=== PATIENT | male | born 1945 | race Caucasian/White ===

== ENCOUNTER → 2018-03-25 | Outpatient (CLI) | payer MEDICARE ==
[~2018-03-25] MED LIST: DEXL30CA2 PO; OLME40TA12 PO; ROSU40TA PO; SUMA100T4 PO
[2018-03-25 10:31] LABS: BASOPHILS # (AUTO) 0.02 x10^3/uL (0-0.1); BASOPHILS % (AUTO) 0 % (0-1); EOSINOPHILS # (AUTO) 0.18 x10^3/uL (0-0.4); EOSINOPHILS % (AUTO) 3 % (1-7); LYMPHOCYTES # (AUTO) 1.25 x10^3/uL (1-3.4); LYMPHOCYTES % (AUTO) 17 % (22-44); MD NO; MEAN CORPUSCULAR HEMOGLOBIN 31.8 pg (27.5-34.5); MEAN CORPUSCULAR VOLUME 93.6 fL (81-97); MEAN PLATELET VOLUME 7.7 fL (7.4-10.4); MONOCYTES # (AUTO) 0.69 x10^3/uL (0.2-0.8); MONOCYTES % (AUTO) 10 % (2-9); NEUTROPHILS # (AUTO) 5.04 x10^3/uL (1.8-6.8); NEUTROPHILS % (AUTO) 70 % (42-75); PLATELET COUNT 299 x10^3/uL (130-400); RED BLOOD COUNT 4.21 x10^6/uL (4.38-5.82); RED CELL DISTRIBUTION WIDTH 13.8 % (9.4-14.8)
[2018-03-25 10:31] LABS: CULTURE INDICATED? NO; MICROSCOPIC NOT IND
[2018-03-25 10:43] LABS: ALANINE AMINOTRANSFERASE 27 U/L (12-78); ALBUMIN 3.6 g/dL (3.4-5.0); CALCIUM 9.3 mg/dL (8.5-10.1); CREATININE 1.19 mg/dL (0.7-1.3)
[2018-03-25 10:45] LABS: ALKALINE PHOSPHATASE 82 U/L (45-117); BILIRUBIN,TOTAL 0.3 mg/dL (0.2-1.0); TOTAL PROTEIN 7.2 g/dL (6.4-8.2)
[2018-03-25 10:53] LABS: ANION GAP 6 mmol/L (5-15); CHLORIDE 107 mmol/L (98-107)
== END | disposition home or self-care (01) ==
LOC: STAR 09:25
PROVIDERS: ATTEND Orthopaedic Surgery
DX: Z01.818 Encounter for other preprocedural examination (principal); M17.11 Unilateral primary osteoarthritis, right knee
CPT/HCPCS: 36415; 80053; 81003; 85025; 87081; 93005

== ENCOUNTER 2018-04-01 06:01 | Inpatient (IN) | payer MEDICARE ==
[~2018-04-01] VITALS: Ht 175.3 cm; Wt 82.7 kg
[2018-04-01] MEDS ORDERED: LACTATED RINGERS 1,000 ML IV SCH (06:59)
[2018-04-01 07:22] VITALS: BP 145/85
[2018-04-01] MEDS ORDERED: KETOROLAC 60 MG/2 ML ONE (07:26)
[2018-04-01] MEDS ORDERED: TRANEXAMIC ACID 100 MG/ML, 10ML ONE (07:26)
[2018-04-01] MEDS ORDERED: VANCOMYCIN 1,000 MG ONE (07:27)
[2018-04-01] MEDS ORDERED: ROPIvacaine/PF 0.2%, 20 ML ONE (07:27)
[2018-04-01] MEDS ORDERED: EPINEPHRINE 1 MG/ML, 1ML ONE (07:27)
[2018-04-01] MEDS ORDERED: SODIUM CHLORIDE 0.9% 100 ML ONE (07:27)
[2018-04-01] MEDS ORDERED: FENTANYL PF 250 MCG/5ML ONE (08:32)
[2018-04-01] MEDS ORDERED: MIDAZOLAM 1 MG/ML, 2ML ONE (08:32)
[2018-04-01] MEDS ORDERED: GABAPENTIN 300 MG CAPSULE ONE (09:08)
[2018-04-01] MEDS ORDERED: GABAPENTIN 300 MG CAPSULE PO ONE (09:30)
[2018-04-01] MEDS ORDERED: CEFAZOLIN 1,000 MG ONE (09:30)
[2018-04-01] MEDS ORDERED: PROPOFOL 10 MG/ML, 50ML ONE (09:30)
[2018-04-01] MEDS ORDERED: ONDANSETRON 2MG/ML, 2ML ONE (09:30)
[2018-04-01] MEDS ORDERED: hydrALAzine 20 MG/ML, 1ML IV PRN (10:00)
[2018-04-01] MEDS ORDERED: PROMETHAZINE 12.5 MG SUPP PR PRN ×2 (10:00→11:30)
[2018-04-01] MEDS ORDERED: LABETALOL 5MG/ML, 20ML IV PRN (10:00)
[2018-04-01] MEDS ORDERED: ONDANSETRON 2MG/ML, 2ML IV PRN ×2 (10:00→11:30)
[2018-04-01] MEDS ORDERED: ONDANSETRON ODT 8 MG PO PRN (10:00)
[2018-04-01] MEDS ORDERED: HYDROmorphone 1 MG/ML, 1ML IV PRN ×2 (10:00→11:30)
[2018-04-01] MEDS ORDERED: FENTANYL PF 100 MCG/2ML IV PRN (10:00)
[2018-04-01] MEDS ORDERED: OXYcodone 5 MG/5 ML ORAL.SOL UDC PO PRN (10:00)
[2018-04-01] MEDS ORDERED: DIPHENHYDRAMINE 50 MG/ML, 1ML ONE (10:41)
[2018-04-01] MEDS ORDERED: MEPERIDINE/PF 25MG/ML,1ML ONE (11:17)
[2018-04-01] MEDS ORDERED: SUMATRIPTAN 100 MG TABLET PO PRN (11:30)
[2018-04-01] MEDS ORDERED: DIPHENHYDRAMINE 50 MG CAPSULE PO PRN (11:30)
[2018-04-01] MEDS ORDERED: PROMETHAZINE 25 MG/ML, 1ML IM PRN (11:30)
[2018-04-01] MEDS ORDERED: SENNA/DOCUSATE TABLET PO PRN (11:30)
[2018-04-01] MEDS ORDERED: ALUMINUM/MAG/SIMETHICONE 30 ML UDC PO PRN (11:30)
[2018-04-01] MEDS ORDERED: ACETAMINOPHEN 650 MG/20.3 ML UDC PO PRN (11:30)
[2018-04-01] MEDS ORDERED: MEPERIDINE/PF 25MG/0.5ML IVPush PRN (11:30)
[2018-04-01] MEDS ORDERED: DIAZEPAM 5 MG TABLET PO PRN (11:30)
[2018-04-01] MEDS ORDERED: ZOLPIDEM 5MG TABLET PO PRN (11:30)
[2018-04-01] MEDS ORDERED: BISACODYL 10 MG SUPP PR PRN (11:30)
[2018-04-01] MEDS ORDERED: MAGNESIUM HYDROXIDE 8%, 30ML UDC PO PRN (11:30)
[2018-04-01] MEDS ORDERED: ONDANSETRON 4 MG TABLET PO PRN (11:30)
[2018-04-01] MEDS ORDERED: TRANEXAMIC ACID 1,000 MG in SODIUM CHLORIDE 0.9% 100 ML IVPB ONE (11:45)
[2018-04-01] MEDS ORDERED: OXYcodone 5 MG/5 ML ORAL.SOL UDC ONE (11:47)
[2018-04-01 12:30] VITALS: BP 131/77
[2018-04-01 13:25] VITALS: BP 138/79
[2018-04-01] MEDS: D5%-0.45% NACL 1,000 ML IV SCH ×2 (13:40→21:15)
[2018-04-01] MEDS: TAMSULOSIN 0.4 MG CAP.ER.24H PO SCH (13:40)
[2018-04-01 17:09] VITALS: BP 132/87
[2018-04-01] MEDS: CEFAZOLIN PMX 2GM/50ML 50 ML IVPB SCH (18:13)
[2018-04-01 20:50] VITALS: BP 117/70
[2018-04-01] MEDS: DOCUSATE 100 MG CAPSULE PO SCH (21:15)
[2018-04-01] MEDS: HYDROcodone/APAP 10/325 MG TABLET PO PRN (22:09)
[2018-04-02 00:03] VITALS: BP 101/59
[2018-04-02] MEDS: CEFAZOLIN PMX 2GM/50ML 50 ML IVPB SCH (01:41)
[2018-04-02] MEDS: HYDROcodone/APAP 10/325 MG TABLET PO PRN ×2 (03:51→10:00)
[2018-04-02] MEDS: D5%-0.45% NACL 1,000 ML IV SCH (05:12)
[2018-04-02] MEDS ORDERED: DEXAMETHASONE 4 MG/ML, 1ML IVPush SCH (06:00)
[2018-04-02] MEDS ORDERED: ASPIRIN 81 MG TABLET EC PO SCH (06:00)
[2018-04-02 07:44] VITALS: BP 108/67
[2018-04-02] MEDS: DOCUSATE 100 MG CAPSULE PO SCH (08:14)
[2018-04-02] MEDS: TAMSULOSIN 0.4 MG CAP.ER.24H PO SCH (08:14)
[2018-04-02] MEDS ORDERED: MULTIVITAMINS/MINERALS TABLET PO SCH (09:00)
[2018-04-02] MEDS ORDERED: HYDR-3240 PO (09:06)
[2018-04-02] MEDS ORDERED: KETOROLAC 30 MG/1 ML IV SCH (11:30)
== END 2018-04-02 10:25 | disposition home or self-care (01) | DRG 470 ==
LOC: OUT 06:01 → ORIP 11:22 → 4NOR 12:23 → DCLOUNGE 04-02 10:18
PROVIDERS: ADMIT Orthopaedic Surgery; ATTEND Orthopaedic Surgery
PROC: 0SRC0J9 Replacement of Right Knee Joint with Synthetic Substitute, Cemented, Open Approach (ICD-10-PCS; principal; 2018-04-01 09:00)
DX: M17.11 Unilateral primary osteoarthritis, right knee (principal); M21.061 Valgus deformity, not elsewhere classified, right knee; K21.9 Gastro-esophageal reflux disease without esophagitis; I10 Essential (primary) hypertension; E78.5 Hyperlipidemia, unspecified; Z87.891 Personal history of nicotine dependence; G43.909 Migraine, unspecified, not intractable, without status migrainosus
CPT/HCPCS: 36415; 85014; 85018; C1713; G0378; J0171; J0690; J1100; J1885; J2175; J2250; J2405; J2704; J2795; J3010; J3370; C1776; J1200; J7120

== ENCOUNTER → 2019-12-29 | Outpatient (CLI) | payer MEDICARE ==
[~2019-12-29] MED LIST changes: +HYDR-3240 PO; +VISIPAQUE 320 MG/ML, 150ML BOTTLE ONE
== END | disposition home or self-care (01) ==
LOC: RAD 12:32
PROVIDERS: ATTEND Internal Medicine
DX: I25.10 Atherosclerotic heart disease of native coronary artery without angina pectoris (principal); I71.4 Abdominal aortic aneurysm, without rupture; I70.91 Generalized atherosclerosis; I70.0 Atherosclerosis of aorta; I51.7 Cardiomegaly; Z13.9 Encounter for screening, unspecified; Z13.89 Encounter for screening for other disorder
CPT/HCPCS: 36415; 71275; 74174; 75574; 82565; Q9967